=== PATIENT | male | born 1985 | race Caucasian/White ===

== ENCOUNTER 2020-03-10 12:50 | Emergency (ER) | payer MEDICAID ==
[~2020-03-10] VITALS: Ht 172.7 cm; Wt 65.3 kg
[2020-03-10 13:05] VITALS: Ht 172.7 cm; Wt 65.3 kg
[2020-03-10 13:39] LABS: microscopic required? NO
[2020-03-10 13:49] LABS: UA SPECIFIC GRAVITY 1.015 (1.005-1.035); urine erythrocyte NEGATIVE (NEGATIVE)
[2020-03-10 16:42] VITALS: BP 123/71
== END 2020-03-10 16:42 | disposition home or self-care (01) ==
LOC: ED 12:50
PROVIDERS: Specialist
DX: N43.3 Hydrocele, unspecified (principal); N50.3 Cyst of epididymis
CPT/HCPCS: Q0092